=== PATIENT | male | born 1965 | race American Indian/Alaskan Native ===

== ENCOUNTER 2019-08-31 14:46 | Emergency (ER) | payer SELFPAY ==
[2019-08-31] MEDS ORDERED: CLINDAMYCIN 600 MG/50 mL 600 MG/50 ML BAG IV ONE (19:36)
--- NOTE | 2019-08-31 19:53 | Emergency Department Report ---
ED Extremity Problem HPI - General Chief complaint: Extremity Problem,Nontraumatic Stated complaint: RIGHT LEG INFECTION Time Seen by Provider: 08/31/19 19:15 Source: patient Mode of arrival: Ambulatory Limitations: No Limitations - History of Present Illness Initial comments: Patient is a 54-year-old male who presents the emergency room with complaints of an infection to his right lower extremity that began 2 weeks ago. He states that he first noticed a small scab on the flexor surface of the right knee and he was constantly scratching. He states over the last 2 weeks it has worsened. he states that the scab has enlarged he has noticed serous drainage, erythema of the leg, edema of the right lower extremity. He denies ever having this before. He denies any fever, nausea, vomiting, diarrhea, chills. He states he has a past medical history of hypertension. He denies any allergies to medications. He denies any history of diabetes. - Related Data Previous Rx's Medication Instructions Recorded Last Taken Type Clindamycin [Clindamycin CAP] 450 mg PO TID 7 Days #63 capsule 08/31/19 Unknown Rx Mupirocin [Bactroban 2% OINT] 1 applic TP TID #1 tube 08/31/19 Unknown Rx Allergies Allergy/AdvReac Type Severity Reaction Status Date / Time No Known Allergies Allergy Unverified 08/31/19 14:48 ED Review of Systems ROS: Stated complaint: RIGHT LEG INFECTION Other details as noted in HPI Comment: All other systems reviewed and negative ED Past Medical Hx - Past Medical History Previous Medical History?: Yes Hx Hypertension: Yes - Surgical History Past Surgical History?: No - Social History Smoking Status: Never Smoker Substance Use Type: None - Medications Home Medications: Home Medications Medication Instructions Recorded Confirmed Last Taken Type Clindamycin [Clindamycin CAP] 450 mg PO TID 7 Days #63 capsule 08/31/19 Unknown Rx Mupirocin [Bactroban 2% OINT] 1 applic TP TID #1 tube 08/31/19 Unknown Rx ED Physical Exam - General Limitations: No Limitations General appearance: alert, in no apparent distress - Head Head exam: Present: atraumatic, normocephalic - Eye Eye exam: Present: normal appearance - ENT ENT exam: Present: mucous membranes moist - Extremities Exam Extremities exam: Present: other (scabbing present to the flexor surface of the knee to the mid calf, there is serous drainage, there is erythema surrounding, there is edema of the right leg from below the knee to the foot, skin is shiny, hairless, 2+ dp and pt pulses, sensation intact, no purulent drainage, no necrosis, one small fluid filled blister, no skin denuding, left lower extremity is normal) - Neurological Exam Neurological exam: Present: alert, oriented X3 - Psychiatric Psychiatric exam: Present: normal affect, normal mood - Skin Skin exam: Present: warm ED Course Vital Signs 08/31/19 08/31/19 14:52 23:47 Temperature 98.2 F 98.1 F Pulse Rate 102 H 80 Respiratory 18 18 Rate Blood Pressure 155/93 Blood Pressure 166/96 [Left] O2 Sat by Pulse 99 99 Oximetry ED Medical Decision Making - Lab Data Result diagrams: 08/31/19 19:59 08/31/19 19:59 Lab Results 08/31/19 08/31/19 Range/Units 19:59 19:59 WBC 4.5 (4.5-11.0) K/mm3 RBC 4.22 (3.65-5.03) M/mm3 Hgb 14.1 (11.8-15.2) gm/dl Hct 42.3 (35.5-45.6) % MCV 100 H (84-94) fl MCH 33 H (28-32) pg MCHC 33 (32-34) % RDW 13.5 (13.2-15.2) % Plt Count 197 (140-440) K/mm3 Lymph % (Auto) 35.8 H (13.4-35.0) % [place] % (Auto) 10.4 H (0.0-7.3) % Eos % (Auto) 5.1 H (0.0-4.3) % Baso % (Auto) 1.1 (0.0-1.8) % Lymph # 1.6 (1.2-5.4) K/mm3 [place] # 0.5 (0.0-0.8) K/mm3 Eos # 0.2 (0.0-0.4) K/mm3 Baso # 0.1 (0.0-0.1) K/mm3 Seg Neutrophils % 47.6 (40.0-70.0) % Seg Neutrophils # 2.1 (1.8-7.7) K/mm3 Sodium 143 (137-145) mmol/L Potassium 4.2 (3.6-5.0) mmol/L Chloride 102.0 (98-107) mmol/L Carbon Dioxide 23 (22-30) mmol/L Anion Gap 22 mmol/L BUN 12 (9-20) mg/dL Creatinine 0.7 L (0.8-1.5) mg/dL Estimated GFR > 60 ml/min BUN/Creatinine Ratio 17 % Glucose 120 H (75-100) mg/dL Calcium 9.2 (8.4-10.2) mg/dL Total Bilirubin 0.20 (0.1-1.2) mg/dL AST 55 H (5-40) units/L ALT 40 (7-56) units/L Alkaline Phosphatase 86 (35-129) units/L Total Protein 7.6 (6.3-8.2) g/dL Albumin 4.2 (3.9-5) g/dL Albumin/Globulin Ratio 1.2 % - Radiology Data Radiology results: report reviewed Venous duplex lower extremity right Dictated by Shmuel Mcmillan MD, FACR The common femoral, superficial femoral, popliteal, and calf vessels were identified. The veins were all compressible no obvious thrombus is seen. Normal Doppler flow seen in each vessel. - Medical Decision Making Patient is a 54-year-old male who presents the emergency room with complaints of an infection to his right lower extremity that began 2 weeks ago. He states that he first noticed a small scab on the flexor surface of the right knee and he was constantly scratching. He states over the last 2 weeks it has worsened. he states that the scab has enlarged he has noticed serous drainage, erythema of the leg, edema of the right lower extremity. He denies ever having this before. He denies any fever, nausea, vomiting, diarrhea, chills. He states he has a past medical history of hypertension. He denies any allergies to medications. He denies any history of diabetes. Vitals are stable. on exam: scabbing present to the flexor surface of the knee to the mid calf, there is serous drainage, there is erythema surrounding, there is edema of the right leg from below the knee to the foot, skin is shiny, hairless, 2+ dp and pt pulses, sensation intact, no purulent drainage, no necrosis, one small fluid filled blister, no skin denuding, left lower extremity is normal. RLE US: The common femoral, superficial femoral, popliteal, and calf vessels were identified. The veins were all compressible no obvious thrombus is seen. Normal Doppler flow seen in each vessel. Patient given IV clindamycin while in the emergency department. Patient given prescription for clindamycin and mupirocin. Discussed with patient the importance of having the area reexamined within the next 3 days. Patient verbalized understanding. advised pt Please use medication as prescribed. Stop using peroxide and alcohol. Follow-up with a primary care doctor in the next 3 days for reexamination. Return to the emergency room immediately for any new or worsening symptoms including but not limited to increasing drainage, increasing redness, fever, chills, increasing swelling, etc. - Differential Diagnosis Cellulitis, DVT, PAD, PVD Critical care attestation.: If time is entered above; I have spent that time in minutes in the direct care of this critically ill patient, excluding procedure time. ED Disposition Clinical Impression: Cellulitis Qualifiers: Site of cellulitis: extremity Site of cellulitis of extremity: lower extremity Laterality: right Qualified Code(s): L03.115 - Cellulitis of right lower limb Disposition: DC-01 TO HOME OR SELFCARE Is pt being admited?: No Does the pt Need Aspirin: No Condition: Stable Instructions: Cellulitis (ED) Additional Instructions: Please use medication as prescribed. Stop using peroxide and alcohol. Follow- up with a primary care doctor in the next 3 days for reexamination. Return to the emergency room immediately for any new or worsening symptoms including but not limited to increasing drainage, increasing redness, fever, chills, increasing swelling, etc. Prescriptions: Mupirocin [Bactroban 2% OINT] 1 applic TP TID #1 tube Clindamycin [Clindamycin CAP] 450 mg PO TID 7 Days #63 capsule Referrals: YENY GRECO MD [Staff Physician] - 2-3 Days [facility] [Outside] - 2-3 Days Time of Disposition: 23:41 Print Language: GERMAN
[2019-08-31 20:34] LABS: Basophils # (Auto) 0.1 K/mm3 (0.0-0.1); Basophils % (Auto) 1.1 % (0.0-1.8); Eosinophils # (Auto) 0.2 K/mm3 (0.0-0.4); Eosinophils % (Auto) 5.1 % (0.0-4.3); Hematocrit 42.3 % (35.5-45.6); Hemoglobin 14.1 gm/dl (11.8-15.2); Lymphocytes # (Auto) 1.6 K/mm3 (1.2-5.4); Lymphocytes % (Auto) 35.8 % (13.4-35.0); Mean Corpuscular HGB Conc 33 % (32-34); Mean Corpuscular Volume 100 fl (84-94); Monocytes # (Auto) 0.5 K/mm3 (0.0-0.8); Monocytes % (Auto) 10.4 % (0.0-7.3); Platelet Count 197 K/mm3 (140-440); Red Blood Count 4.22 M/mm3 (3.65-5.03); Red Cell Distribution Width 13.5 % (13.2-15.2)
[2019-08-31 20:51] LABS: Alanine Aminotransferase 40 units/L (7-56); Albumin 4.2 g/dL (3.9-5); BUN/Creatinine Ratio 17; Blood Urea Nitrogen 12 mg/dL (9-20); Calcium 9.2 mg/dL (8.4-10.2); Hemolysis Index 11
--- NOTE | 2019-08-31 23:36 | Vascular Lab Report ---
VL venous duplex LE RT INDICATION / CLINICAL INFORMATION: RLE edema. Doppler ultrasound and spectral analysis was performed on the right lower extremity COMPARISON: 11/03/2017 FINDINGS: The common femoral, superficial femoral, popliteal and calf vessels were identified. The veins were a ll compressible no obvious thrombus is seen. Normal Doppler flow seen in each vessel. IMPRESSION: No evidence of deep venous thrombosis of the right lower extremity Signer Name: Shmuel Mcmillan MD FACJenifer Signed: 08/31/2019 11:31 PM Workstation Name: [id number]
[2019-08-31 23:48] VITALS: BP 166/96
== END 2019-09-01 00:12 | disposition home or self-care (01) ==
LOC: ED 14:46
DX: L03.115 Cellulitis of right lower limb (principal); I10 Essential (primary) hypertension; Z79.899 Other long term (current) drug therapy
CPT/HCPCS: 36415; 80053; 85025; 96365